=== PATIENT | female | born 1980 | race African-American/Black ===

== ENCOUNTER 2017-04-28 09:28 | Inpatient (IN) | payer OTHER ==
[~2017-04-28] VITALS: Ht 162.5 cm; Wt 74.9 kg
[~2017-04-28 09:28] MED LIST: NORVASC5 MG PO; [UNRECOGNIZED DRUG - OTHER] PO
[2017-04-28 09:34] VITALS: BP 124/78
[2017-04-28 09:58] LABS: BILIRUBIN NEGATIVE (NEGATIVE); BLOOD TRACE-LYSED (NEGATIVE); CLARITY SL CLOUDY (CLEAR); COLOR YELLOW (YELLOW); GLUCOSE NEGATIVE (NEGATIVE); KETONE NEGATIVE (NEGATIVE); LEUKO ESTERASE NEGATIVE (NEGATIVE); NITRITE NEGATIVE (NEGATIVE); SPECIFIC GRAVITY 1.025 (1.005-1.030); UROBILINOGEN 0.2 E.U./dl (0.2-1.0)
[2017-04-28 10:04] LABS: BASO % 0.3 % (0.0-1.0); EOS # 0.1 10*3/uL (0.0-0.4); EOS % 1.4 % (1.0-4.0); HEMATOCRIT 38.5 % (37.0-47.0); HEMOGLOBIN 12.1 g/dl (12.0-16.0); LYMPH # 1.9 10*3/uL (1.3-4.4); LYMPH % 25.1 % (27.0-41.0); MEAN CELL VOLUME 80.2 fl (81.0-99.0); MEAN CORPUSCULAR HGB 25.2 pg (27.0-31.0); MEAN CORPUSCULAR HGB CONC 31.4 g/dl (33.0-37.0); MEAN PLATELET VOLUME 9.6 fl (9.6-12.3); MONO # 0.4 10*3/uL (0.1-1.0); NEUT # 5.3 10*3/uL (2.3-7.9); NEUT % 67.9 % (47.0-73.0); PLATELET COUNT AUTOMATED 261 10*3/uL (130-400); RED CELL DISTRI WIDTH 17.8 % (0-14.5); WHITE BLOOD COUNT 7.7 10*3/uL (4.8-10.8)
[2017-04-28 10:08] LABS: URINE AMPHETAMINES < 1000 (1000ng/ml); URINE BARBITURATES < 200 (200ng/ml); URINE BENZODIAZEPINES < 200 (200ng/ml); URINE CANNABINOIDS (THC) > 50 (50ng/ml); URINE COCAINE > 300 (300ng/ml); URINE METHADONE < 300 (300ng/ml); URINE OPIATES > 300 (300ng/ml); URINE PHENCYCLIDINE < 25 (25ng/ml)
[2017-04-28 10:09] LABS: WBC 0-2 wbc/hpf (0-5)
[2017-04-28 10:18] LABS: ALBUMIN 3.6 gm/dl (3.1-4.5); ALKALINE PHOSPHATASE 61 U/L (45-117); BUN 13 mg/dl (7-24); CHLORIDE 107 mmol/L (98-107); CREATININE 0.94 mg/dL (0.55-1.02); POTASSIUM 3.8 mmol/L (3.5-5.1); SGOT/AST 13 IU/L (3-35); SGPT/ALT 14 U/L (12-78); SODIUM 138 mmol/L (136-145); TOTAL PROTEIN 7.1 gm/dL (6.4-8.2)
[2017-04-28 10:19] LABS: ETHYL ALCOHOL < 3.0 mg/dl (<3)
[2017-04-28 10:26] LABS: THYROID STIM HORMONE (HS) 0.631 uIU/ml (0.358-4.75)
[2017-04-28 10:45] VITALS: BP 113/68
[2017-04-28 12:00] VITALS: BP 116/71
[2017-04-28 16:00] VITALS: BP 93/52
[2017-04-28 20:00] VITALS: BP 114/72
[2017-04-29] VITALS: BP 118/80
[2017-04-29 08:00] VITALS: BP 106/67
[2017-04-29 12:00] VITALS: BP 113/69
[2017-04-29 16:00] VITALS: BP 99/60
[2017-04-29 20:00] VITALS: BP 102/65
[2017-04-30 08:00] VITALS: BP 99/67
[2017-04-30] MEDS ORDERED: ROPINIROLE HYD0.5 MG PO (10:24)
[2017-04-30] MEDS ORDERED: ATARAX,VISTARIL50 MG PO (10:24)
[2017-04-30 12:00] VITALS: BP 95/50
[2017-04-30 16:00] VITALS: BP 108/70
[2017-04-30 20:00] VITALS: BP 105/55
[2017-05-01] VITALS: BP 112/70
== END 2017-05-01 08:19 | disposition home or self-care (01) | DRG 897 ==
LOC: ED 09:28 → EDHOLD 09:47 → 4E 09:47
PROVIDERS: Emergency Medicine; ADMIT Internal Medicine
DX: F11.23 Opioid dependence with withdrawal (principal); I10 Essential (primary) hypertension; F14.10 Cocaine abuse, uncomplicated; F12.10 Cannabis abuse, uncomplicated; Z72.0 Tobacco use; Z71.6 Tobacco abuse counseling; Z91.040 Latex allergy status; Z79.899 Other long term (current) drug therapy; Z82.49 Family history of ischemic heart disease and other diseases of the circulatory system; Z83.79 Family history of other diseases of the digestive system; Z91.030 Bee allergy status

== ENCOUNTER 2017-07-28 14:19 | Inpatient (IN) | payer OTHER ==
[~2017-07-28] VITALS: Ht 163.8 cm; Wt 72.6 kg
[~2017-07-28 14:19] MED LIST changes: +ATARAX,VISTARIL50 MG PO; +ROPINIROLE HYD0.5 MG PO
[2017-07-28 14:28] VITALS: BP 129/82
[2017-07-28 14:48] LABS: BASO % 0.3 % (0.0-1.0); EOS # 0.1 10*3/uL (0.0-0.4); EOS % 0.8 % (1.0-4.0); HEMATOCRIT 38.6 % (37.0-47.0); HEMOGLOBIN 12.5 g/dl (12.0-16.0); LYMPH # 2.3 10*3/uL (1.3-4.4); MEAN CELL VOLUME 78.6 fl (81.0-99.0); MEAN CORPUSCULAR HGB 25.5 pg (27.0-31.0); MEAN CORPUSCULAR HGB CONC 32.4 g/dl (33.0-37.0); MEAN PLATELET VOLUME 9.8 fl (9.6-12.3); MONO # 0.4 10*3/uL (0.1-1.0); MONO % 4.2 % (3.0-9.0); NEUT # 6.1 10*3/uL (2.3-7.9); NEUT % 68.5 % (47.0-73.0); PLATELET COUNT AUTOMATED 315 10*3/uL (130-400); RED BLOOD COUNT 4.91 10*6/uL (4.10-5.10); RED CELL DISTRI WIDTH 18.1 % (0-14.5); WHITE BLOOD COUNT 8.9 10*3/uL (4.8-10.8)
[2017-07-28 15:02] LABS: ALBUMIN 3.5 gm/dl (3.1-4.5); ALKALINE PHOSPHATASE 71 U/L (45-117); BUN 5 mg/dl (7-24); CHLORIDE 106 mmol/L (98-107); CREATININE 0.96 mg/dL (0.55-1.02); POTASSIUM 3.7 mmol/L (3.5-5.1); SGOT/AST 15 IU/L (3-35); SGPT/ALT 16 U/L (12-78); SODIUM 142 mmol/L (136-145); TOTAL PROTEIN 7.1 gm/dL (6.4-8.2)
[2017-07-28 15:07] LABS: ACETAMINOPHEN (TYLENOL) < 2.0 ug/ml (10-30); ETHYL ALCOHOL < 3.0 mg/dl (<3)
[2017-07-28 15:41] LABS: BILIRUBIN 1+ (NEGATIVE); BLOOD NEGATIVE (NEGATIVE); CLARITY SL CLOUDY (CLEAR); COLOR YELLOW (YELLOW); GLUCOSE NEGATIVE (NEGATIVE); KETONE TRACE (NEGATIVE); LEUKO ESTERASE NEGATIVE (NEGATIVE); NITRITE NEGATIVE (NEGATIVE); PH 5.5 (5.0-9.0); SPECIFIC GRAVITY >= 1.030 (1.005-1.030); UROBILINOGEN 0.2 E.U./dl (0.2-1.0)
[2017-07-28 15:50] LABS: URINE AMPHETAMINES < 1000 (1000ng/ml); URINE BARBITURATES < 200 (200ng/ml); URINE BENZODIAZEPINES < 200 (200ng/ml); URINE CANNABINOIDS (THC) > 50 (50ng/ml); URINE COCAINE > 300 (300ng/ml); URINE METHADONE < 300 (300ng/ml); URINE OPIATES > 300 (300ng/ml); URINE PHENCYCLIDINE < 25 (25ng/ml)
[2017-07-28 15:54] LABS: BACTERIA 2+; MUCOUS TRACE; RBC 0-2 rbc/hpf (0-2)
[2017-07-28 15:55] VITALS: BP 117/84
--- NOTE | 2017-07-28 15:55 | NUR ---
Time: 1554 A 37 year old FEMALE admitted to under services of SOFIA DENIS DO. Pt. arrived via ambulatory from ER. Chief complaint: OPIATE ABUSE. ERIC BRODY
--- NOTE | 2017-07-28 16:10 | NUR ---
37 year old FEMALE admitted to room # 403 BED 2 for stabilization. Reports an addiction to [facility] last used LAST NIGHT prior to admission. Compliant with admission procedure. Patient COMPLAINING OF RESTLESS LEGS,DIARRHEA,VOMITING,ANXIETY AND HOT AND COLD SWEATS See assessment forms for additional information about patient status.
--- NOTE | 2017-07-28 17:24 | NUR ---
PT RESTING IN BED. MEDICATED WITH REQUIP PO FOR RESTLESS LEGS. ALSO MEDICATED WITH VISTARIL PO FOR ANXIETY AND SUBUTEX FOR WITHDRAWAL SYMPTOMS PER EMAR. CALL LIGHT IN REACH.
--- NOTE | 2017-07-28 18:15 | NUR ---
Patient resting. Responding to scheduled medications with fewer complaints of pain and anxiety.
[2017-07-28 20:10] VITALS: BP 120/80
--- NOTE | 2017-07-28 20:20 | NUR ---
PT. IS CURRENTLY SLEEPING PEACEFULLY AT THIS TIME. PLEASANT AND COOPERATIVE UPON AROUSAL. PT. HAS NO C/O OR SIGNS OF DISTRESS. HOB IS SLIGHTLY ELEVATED, CALL LIGHT IS WITHIN REACH, BED LOW, AND WHEELS LOCKED. SEE SHIFT ASSESSMENT.
--- NOTE | 2017-07-28 21:25 | NUR ---
PT. C/O ANXIETY, ABDOMINAL CRAMPS, RESTLESS LEGS, ACHES AND GENERAL PAIN. ATIVAN, BENTYL, MOTRIN, REQUIP, AND ROBAXIN GIVEN AT THIS TIME. CALL LIGHT IN REACH WILL MONIOR EFFECT.
[2017-07-29] VITALS: BP 118/75
--- NOTE | 2017-07-29 01:33 | NUR ---
MEDICATED WITH PRN TRAZADONE AND VISATRIL ORDERED FOR C/O INSOMNIA AND ANXIETY.
--- NOTE | 2017-07-29 02:30 | NUR ---
EARLIER PRN MEDICATIONS APPEAR EFFECTIVE. PATIENT IS SLEEPING, NO SXS OF DISTRESS. CALLL LIGHT IS IN REACH.
[2017-07-29 04:00] VITALS: BP 101/62
--- NOTE | 2017-07-29 06:48 | NUR ---
PATIENT SLEPT T/O SHIFT. NO VOICED COMPLAINTS AT THIS TIME. RESPIRATIONS EASY/REG. CALL LIGHT IS IN REACH
[2017-07-29 08:00] VITALS: BP 107/67
--- NOTE | 2017-07-29 12:15 | NUR ---
PATIENT IS A NEW VISION PATIENT. PATIENT IS STILL WORKING ON AFTERCARE PLAN WITH [facility] STAFF. NATY BARAJAS B.A. PAPER STEAMER
[2017-07-29 16:00] VITALS: BP 116/75
--- NOTE | 2017-07-29 19:59 | NUR ---
PATIENT HAS COMPLAINT OF LEG CRAMPS/PAIN, ROBAXIN AND SCHEDULED REQUIP GIVEN. WILL MONITOR AND REASSES.
[2017-07-29 20:00] VITALS: BP 115/64
--- NOTE | 2017-07-29 22:15 | NUR ---
PATIENT RESTING IN BED WITH NO C/O'S AT THIS TIME. BED IN LOW POSITION, SIDERAILS UP X2 FOR SAFETY AND CALL LIGHT IN REACH.
[2017-07-30] VITALS: BP 112/70
--- NOTE | 2017-07-30 02:04 | NUR ---
PATIENT C/O ANXIETY AND MUSCLE ACHES. MEDICATED WITH PO PRN ATIVAN AND PO PRN ROBAXIN AT THIS TIME. WILL MONITOR FOR EFFECTIVENESS, CALL LIGHT IN REACH.
[2017-07-30 03:45] VITALS: BP 108/66
[2017-07-30 08:00] VITALS: BP 116/77
--- NOTE | 2017-07-30 08:04 | NUR ---
PT MEDICATED WITH ATIVAN 1MG PO AND ROBAXIN 750MG PO FOR C/O ANXIETY AND BODY ACHES.
[2017-07-30 12:00] VITALS: BP 118/82
--- NOTE | 2017-07-30 14:07 | NUR ---
PATIENT WAS REFERRED TO OUTPATIENT AT [facility]. PATIENT HAS AN APPOINTMENT ON July AT 11:00AM. PATIENT WILL BE GOING TO THE [facility]. PATIENT AGREES AND UNDERSTANDS AFTERCARE PLAN. NATY BARAJAS B.A. STEREOTYPER HELPER
--- NOTE | 2017-07-30 15:00 | NUR ---
ASSUMED CARE OF PATIENT. PATIENT IS SITTING UP IN BED, PLEASANT AND COOPERATIVE. PATIENT IS IN STABLE CONDITION.
[2017-07-30 16:00] VITALS: BP 124/64
--- NOTE | 2017-07-30 17:16 | NUR ---
PT RECEIVED ATIVAN FOR ANXIETY AND ROBAXIN FOR MUSCLE ACHES IN THE BACK AND LEGS.
--- NOTE | 2017-07-30 18:00 | NUR ---
PATIENT STATES ATIVAN HAS HELPED ANXIETY AND FEELS LESS ACHY FROM THE ROBAXIN.
[2017-07-30 20:00] VITALS: BP 121/82
--- NOTE | 2017-07-30 22:01 | NUR ---
PATIENT RECEIVED TRAZADONE FOR A SLEEP AID.
[2017-07-31] VITALS: BP 106/50
--- NOTE | 2017-07-31 01:00 | NUR ---
PATIENT IS SLEEPING COMFORTABLY.
[2017-07-31 06:04] LABS: BASO % 0.4 % (0.0-1.0); EOS # 0.2 10*3/uL (0.0-0.4); EOS % 2.3 % (1.0-4.0); HEMATOCRIT 33.9 % (37.0-47.0); HEMOGLOBIN 10.8 g/dl (12.0-16.0); LYMPH # 2.9 10*3/uL (1.3-4.4); LYMPH % 36.7 % (27.0-41.0); MEAN CORPUSCULAR HGB 25.5 pg (27.0-31.0); MEAN CORPUSCULAR HGB CONC 31.9 g/dl (33.0-37.0); MONO # 0.6 10*3/uL (0.1-1.0); MONO % 7.3 % (3.0-9.0); NEUT # 4.1 10*3/uL (2.3-7.9); NEUT % 52.9 % (47.0-73.0); PLATELET COUNT AUTOMATED 295 10*3/uL (130-400); RED BLOOD COUNT 4.24 10*6/uL (4.10-5.10); RED CELL DISTRI WIDTH 18.3 % (0-14.5); WHITE BLOOD COUNT 7.8 10*3/uL (4.8-10.8)
[2017-07-31 06:22] LABS: CREATININE 0.89 mg/dL (0.55-1.02)
--- NOTE | 2017-07-31 06:56 | NUR ---
Shift chart check completed.
[2017-07-31 08:00] VITALS: BP 106/60
--- NOTE | 2017-07-31 08:12 | NUR ---
ROUTINE REQUIP GIVEN TO PREVENT RESTLESS LEGS. PRN ROBAXIN & VISTARIL FOR ANXIETY & MUSCLE ACHES BUT ANXIOUS TO GO HOME TODAY.
--- NOTE | 2017-07-31 08:30 | NUR ---
MED REC REVIEWED - PHARMACY UPDATED
--- NOTE | 2017-07-31 09:27 | NUR ---
Patient signed out AMA. Patient encouraged to stay and advised of possible consequences of premature discharge. Physician DR ADAMS and supervisor feed mill Christina LIZAMA notified. Patient instructed what to do regarding care post-departure from the hospital; emergency phone numbers provided. Patent was accompanied by [facility]. Discharge instructions reviewed with patient/family. Patient receptive and verbalizes understanding. Follow-up care arranged. Written instructions given to patient/family. LUIS FERNANDO BOATENG BARBARA
== END 2017-07-31 09:27 | disposition left against medical advice (07) | DRG 894 ==
LOC: ED 14:19 → 4E 14:43 → EDHOLD 14:43 → 4E 14:46
PROVIDERS: Nurse Practitioner Family; ADMIT Internal Medicine
DX: F11.23 Opioid dependence with withdrawal (principal); F12.10 Cannabis abuse, uncomplicated; F14.10 Cocaine abuse, uncomplicated; G40.909 Epilepsy, unspecified, not intractable, without status epilepticus; G25.81 Restless legs syndrome; F41.9 Anxiety disorder, unspecified; Z53.21 Procedure and treatment not carried out due to patient leaving prior to being seen by health care provider; I10 Essential (primary) hypertension; Z72.0 Tobacco use; Z91.030 Bee allergy status; Z91.040 Latex allergy status; Z79.899 Other long term (current) drug therapy; Z90.49 Acquired absence of other specified parts of digestive tract; Z82.49 Family history of ischemic heart disease and other diseases of the circulatory system; Z84.89 Family history of other specified conditions; Z71.6 Tobacco abuse counseling